=== PATIENT | male | born 1995 | race Two or more races ===

== ENCOUNTER 2024-02-24 00:41 | Emergency (ER) | payer MEDICAID, SELFPAY ==
[2024-02-24 00:43] VITALS: BMI 42.2
[2024-02-24 00:49] VITALS: BP 142/83; PULSE 84; RESP 16; TEMP 37.3; O2SAT 96
--- NOTE | 2024-02-24 00:53 | XR_ITS ---
Examination:Right hip AP, lateral, AP pelvis 3 views Technique: Hip AP lateral, AP pelvis, 3 views Exam date and time:February 24, 2024 0104 hrs. Indications: Patient fell today with injury to the right hip, right hip pain Findings: No right hip fracture or dislocation Left hip bones the pelvis intact Impression: No acute hip or pelvic fracture.
--- NOTE | 2024-02-24 00:53 | EDNOTE_ITS ---
<Statement entered by Joyce Hernandez MD - 03/01/24 17:48> As co-signing physician, I was present and available for consult prn. I concur with the plan and care as documented by the midlevel provider. ED Fall Injury RME/HPI General Chief Complaint: Fall Stated Complaint: FELL,RIGHT HIP PAIN Time Seen by Provider: 02/24/24 00:50 Source: patient Arrival date/time: 02/24/24 00:41 28-year-old male presents emergency department complaining of right hip pain that radiates down towards right leg after falling off approximately 10 foot high rail at work. Patient denies any injury to head or neck area. Mode of arrival: wheelchair Limitations: physical limitation Related Data Previous Rx's ?Medication ?Instructions ?Recorded prednisone 10 mg tablets in a dose 30 mg (3 x 10 mg) PO BID #18 tabs 08/08/14 pack ibuprofen 600 mg tablet 600 mg PO Q8H PRN pain #20 tabs 02/24/24 Allergies Allergy/AdvReac Type Severity Reaction Status Date / Time No Known Allergies Allergy Verified 02/24/24 00:45 Review of Systems Review of Systems Systems Reviewed: All systems reviewed, normal except as documented Constitutional Constitutional: Reports system reviewed and no additional complaints, except as documented, Denies body ache(s), Denies chills and Denies fever(s) Eyes Eyes: Reports system reviewed and no additional complaints, except as documented and Denies change in vision ENT Ears, Nose, Mouth, and Throat: Reports system reviewed and no additional complaints, except as documented, Denies disequilibrium, Denies dizziness, Denies sore throat and Denies vertigo Cardiovascular Cardiovascular: Reports system reviewed and no additional complaints, except as documented, Denies chest pain and Denies dyspnea Respiratory Respiratory: Reports system reviewed and no additional complaints, except as documented, Denies chest congestion, Denies cough and Denies dyspnea Gastrointestinal Gastrointestinal: Reports system reviewed and no additional complaints, except as documented, Denies abdominal pain, Denies nausea and Denies vomiting Musculoskeletal Musculoskeletal: Reports system reviewed and no additional complaints, except as documented, Denies abnormal gait and Reports arthralgias Integumentary/Breasts Skin/Breast: Reports system reviewed and no additional complaints, except as documented, Denies erythema, Denies rash and Denies wounds Neurologic Neurologic: Reports system reviewed and no additional complaints, except as documented, Denies abnormal gait, Denies disequilibrium, Denies dizziness and Denies vertigo Past Medical History Social History SMOKING STATUS: Never smoker ED Exam General Limitations: Present physical limitation General appearance: Present alert and in no apparent distress Head Head exam: Present atraumatic Eye Eye exam: Present normal appearance, PERRL and EOMI ENT ENT exam: Present normal exam, normal oropharynx and mucous membranes moist Neck Neck exam: Present normal inspection, full ROM and trachea midline Chest Chest inspection: Present normal inspection and symmetric chest wall rise Respiratory Respiratory exam: Present normal lung sounds bilaterally Cardiovascular Cardiovascular exam: Present regular rate, normal rhythm and normal heart sounds Abdominal Exam Abdominal exam: Present soft and normal bowel sounds Extremities Exam Extremities exam: Present normal inspection and full ROM Expanded Lower Extremity Exam Hip/Pelvis exam: Present full ROM and tenderness (Right hip) Back Exam Back exam: Present normal inspection and full ROM Neurological Exam Neurological exam: Present alert, oriented X3 and CN II-XII intact Psychiatric Psychiatric exam: Present normal affect and normal mood Skin Skin exam: Present warm, dry, intact and normal color Course Quality Measures none Orders Category Date Time Status XR hip RT w pelvis 2-3V Stat Exams 02/24/24 00:53 Taken Ketorolac Inj [Toradol Inj] Med 02/24/24 00:53 Discontinued 30 mg IM X1 ONE Vital Signs Vital signs: Vital Signs Temperature 99.2 F 02/24/24 00:49 Pulse Rate 84 12 00:49 Respiratory Rate 16 02/24/24 00:49 Blood Pressure 142/83 H 02/24/24 00:49 Pulse Oximetry (%) 96 02/24/24 00:49 Oxygen Delivery Method Room Air 02/24/24 00:49 96% room air within normal limits Fall MDM Narrative MDM Narrative:: 28-year-old male presents emergency department complaining of right hip pain that radiates down towards right leg after falling off approximately 10 foot high rail at work. Patient denies any injury to head or neck area. X-ray was unremarkable for any fracture based on my interpretation. Patient reported improvement in pain with pain medication. Patient is ambulatory and weightbearing with steady gait with some pain reported. No shortening or internal or external rotation. Patient discharged with pain medication and instructed to have close follow-up with primary care provider and return to emergency department for any worsening symptoms or as needed. Patient data External records reviewed:: None Clinical information provided by:: patient Social determinants that could affect healthcare access:: none Patient has the following chronic illnesses:: None How is presenting disease/condition affected by chronic disease/condition?: no chronic disease Evaluation data The following diagnostics were reviewed and interpreted by me:: radiology exam(s) Lab and/or radiology exams considered but not ordered:: Ordered Interpretation Summary: Interpreted by me Medications / Prescriptions Medications or Prescriptions considered but not ordered:: Ordered Medication administrations:: Medication Administration History Discontinued Medications Ketorolac Tromethamine (Ketorolac Inj 60 Mg/2 Ml Vial) 30 mg IM X1 ONE Stop: 02/24/24 00:54 Last Admin: 02/24/24 01:20 Dose: 30 mg Documented By: Given Consultations Consultation(s) initiated? (list below): No Diagnosis Fall Differential Diagnosis: other (Hip fracture, hip dislocation) Most likely diagnosis given after review of the tests above:: Hip pain Admission Indicated Admission indicated?: not indicated Admission Request Was there a request for admission?: No Disposition Plan Disposition Plan: Discharge Discharge Attestation Discharge Attestation: The patient and all family members were given an opportunity to ask questions and understood the discharge instructions. Discharge instructions specifically effects, indications for sooner follow up or return to the emergency department, and the expected course of current diagnosis. Patient condition: Stable Discharge Plan Plan Patient Disposition: HOME (Self Care) Disposition Comment: Stable Prescriptions/Referrals Prescriptions/Med Rec: New ibuprofen 600 mg tablet 600 mg PO Q8H PRN (Reason: pain) Qty: 20 0RF No Action prednisone 10 MG tablets,dose pack 30 mg PO BID Qty: 18 0RF Problem List Clinical Impression: Acute hip pain Patient/Caregiver Discharge Instructions Discharge Activity: activity as tolerated Education Materials: ED Hip Contusion, ED Hip Strain Additional Instructions: Take ibuprofen for pain. Follow-up with primary care provider in 2 to 3 days. Return to emergency department for any worsening symptoms or as needed. Print Language: Persian Stand Alone Forms: Naomi Award Info., Work/School Release, Patient Portal Info Letter PA/PRINT MACHINE OPERATOR Supervising Physician PA/PRINT MACHINE OPERATOR Supervising Physician: Dr. Hernandez
[2024-02-24] MEDS: KETOROLAC INJ 60 MG/2 ML VIAL 30 MG IM (01:20)
--- NOTE | 2024-02-24 03:27 | PRELIM_ITS ---
Radiographs of the right hip joint (3 views). February 24, 2024 0104 hoursClinical history: Pain stat us post fall.Comparison: No prior study is available for comparison. Findings:There is no evidence of fracture or dislocation.The hip joint is normal in configuration and alignment. No bony abnormality is identified. The periarticular soft tissues are normal.Impression:No evidence of fracture or disloc ation. Report Electronically Signed By: Ella Bradshaw 02/24/2024 3:26:32 AM [EST]
== END 2024-02-24 02:24 | disposition home or self-care (01) ==
LOC: SERX 06:49
PROVIDERS: Emergency Provider Emergency Medicine
DX: M25.551 Pain in right hip (principal)
CPT/HCPCS: 73502; 96372; 99283; J1885